=== PATIENT | male | born 2000 | race Caucasian/White ===

== ENCOUNTER → 2018-08-24 16:06 | Emergency (ER) | payer OTHER ==
[~2018-08-24 16:06] MED LIST: Ketorolac INJ* 30 MG/ML 1 ML VIAL IM ONE
--- NOTE | 2018-08-24 17:29 | RAD ---
HISTORY: chest pain COMPARISONS: None VIEWS: 4: Frontal dual-energy and lateral views of the chest. FINDINGS: CARDIOMEDIASTINAL SILHOUETTE: The cardiomediastinal silhouette is normal. LEFTY: The lefty are normal. PLEURA: The costophrenic angles are sharp. No pleural abnormalities are noted. LUNG PARENCHYMA: The lungs are clear. ABDOMEN: The upper abdomen is clear. There is no subphrenic gas. BONES AND SOFT TISSUES: No bone or soft tissue abnormalities are noted. OTHER: None. IMPRESSION: NO ACTIVE CARDIOPULMONARY DISEASE.
[2018-08-24 18:31] LABS: ABS Basophils 0 10^3/ul (0-0.2); ABS Eosinophils 0.1 10^3/ul (0-0.6); ABS Lymphocytes 1.5 10^3/ul (1.0-4.8); ABS Monocytes 0.6 10^3/ul (0-0.8); ABS Neutrophils 4.9 10^3/ul (1.5-7.7); ABS Nucleated RBC 0 10^3/ul; Eosinophil % 0.8 % (0-6); Hematocrit 42 % (42-52); Hemoglobin 14.2 g/dl (14.0-18.0); Lymphocyte % 21.4 % (25-47); Mean Corpuscular HGB Conc 34 g/dl (31-36); Mean Corpuscular Hemoglobin 30 pg (27-31); Mean Corpuscular Volume 88 fL (80-94); Mean Platelet Volume 7.6 um3 (7.4-10.4); Nucleated Red Blood Cells % 0; Platelet Count 270 10^3/ul (150-450); Red Blood Count 4.76 10^6/ul (4.00-5.40); Red Cell Distribution Width 13 % (10.5-15)
[2018-08-24 18:48] LABS: EGFR Non-African American 102.3 (>60)
--- NOTE | 2018-08-24 19:12 | ED ---
HPI Chest Pain - HPI Summary HPI Summary: 18 year old male presents with chest pain for the past 3 days. He states it is a dull ache. He admits occasional shortness breath with it. He states albuterol helps. He states that it mostly happens when he is sitting it seems to flares up. He states when he takes a deep breath it seems to help. He denies any cough. He was sick a week ago with a sore throat. No abdominal pain. No nausea and no vomiting. Has no other medical conditions beside asthma. Has no family cardiac history. No recent travel. Is not a smoker. Has no family history of blood clots. - History of Current Complaint Chief Complaint: EDChestWallPain Time Seen by Provider: 08/24/18 18:41 Pain Intensity: 6 - Allergy/Home Medications Allergies/Adverse Reactions: Allergies Allergy/AdvReac Type Severity Reaction Status Date / Time No Known Allergies Allergy Verified 08/24/18 16:11 PMH/Surg Hx/FS Hx/Imm Hx Endocrine/Hematology History: Denies: Hx Anticoagulant Therapy Respiratory History: Reports: Hx Asthma Infectious Disease History: No Infectious Disease History: Denies: Traveled Outside the [place] in Last 30 Days - Family History Known Family History: Negative: Cardiac Disease - Social History Alcohol Use: None Substance Use Type: Reports: None Smoking Status (MU): Unknown if Ever Smoked Review of Systems Negative: Fever Positive: Chest Pain Positive: Shortness Of Breath. Negative: Cough Negative: Abdominal Pain All Other Systems Reviewed And Are Negative: Yes Physical Exam Triage Information Reviewed: Yes Vital Signs On Initial Exam: Initial Vitals Temp Pulse Resp BP Pulse Ox 98.6 F 68 16 141/75 98 08/24/18 16:11 08/24/18 16:11 08/24/18 16:11 08/24/18 16:11 08/24/18 16:11 Vital Signs Reviewed: Yes Appearance: Positive: Well-Appearing Skin: Positive: Warm, Dry Head/Face: Positive: Normal Head/Face Inspection Eyes: Positive: Normal, EOMI, MAXIMO, Conjunctiva Clear ENT: Positive: Normal ENT inspection, Pharynx normal, TMs normal Respiratory/Lung Sounds: Positive: Clear to Auscultation, Breath Sounds Present Cardiovascular: Positive: Normal, RRR Abdomen Description: Positive: Nontender, Soft Bowel Sounds: Positive: Present Musculoskeletal: Positive: Normal Neurological: Positive: Normal Psychiatric: Positive: Normal Diagnostics - Vital Signs Vital Signs Temp Pulse Resp BP Pulse Ox 08/24/18 18:19 59 16 133/64 98 08/24/18 16:11 98.6 F 68 16 141/75 98 - Laboratory Lab Results: Lab Results 08/24/18 08/24/18 08/24/18 Range/Units 18:09 18:09 18:09 WBC 7.0 (3.5-10.8) 10^3/ul RBC 4.76 (4.00-5.40) 10^6/ul Hgb 14.2 (14.0-18.0) g/dl Hct 42 (42-52) % MCV 88 (80-94) fL MCH 30 (27-31) pg MCHC 34 (31-36) g/dl RDW 13 (10.5-15) % Plt Count 270 (150-450) 10^3/ul MPV 7.6 (7.4-10.4) um3 Neut % (Auto) 69.2 (38-83) % Lymph % (Auto) 21.4 L (25-47) % Sandoval % (Auto) 8.1 H (0-7) % Eos % (Auto) 0.8 (0-6) % Baso % (Auto) 0.5 (0-2) % Absolute Neuts (auto) 4.9 (1.5-7.7) 10^3/ul Absolute Lymphs (auto) 1.5 (1.0-4.8) 10^3/ul Absolute Monos (auto) 0.6 (0-0.8) 10^3/ul Absolute Eos (auto) 0.1 (0-0.6) 10^3/ul Absolute Basos (auto) 0 (0-0.2) 10^3/ul Absolute Nucleated RBC 0 10^3/ul Nucleated RBC % 0 ESR Pending Sodium 139 (135-145) mmol/L Potassium 3.7 (3.5-5.0) mmol/L Chloride 104 (101-111) mmol/L Carbon Dioxide 29 (22-32) mmol/L Anion Gap 6 (2-11) mmol/L BUN 12 (6-24) mg/dL Creatinine 0.94 (0.67-1.17) mg/dL Est GFR ( Amer) 123.8 (>60) Est GFR (Non-Af Amer) 102.3 (>60) BUN/Creatinine Ratio 12.8 (8-20) Glucose 101 H (70-100) mg/dL Lactic Acid 0.5 (0.5-2.0) mmol/L Calcium 9.5 (8.6-10.3) mg/dL Total Bilirubin 0.50 (0.2-1.0) mg/dL AST 21 (13-39) U/L ALT 21 (7-52) U/L Alkaline Phosphatase 93 (34-104) U/L Troponin I 0.00 (<0.04) ng/mL C-Reactive Protein 8.01 H (<8.01) mg/L Total Protein 7.4 (6.4-8.9) g/dL Albumin 4.6 (3.2-5.2) g/dL Globulin 2.8 (2-4) g/dL Albumin/Globulin Ratio 1.6 (1-3) Result Diagrams: 08/24/18 18:09 08/24/18 18:09 Lab Statement: Any lab studies that have been ordered have been reviewed, and results considered in the medical decision making process. - Radiology chest Xray Interpretation: No Acute Changes Radiology Interpretation Completed By: Radiologist - EKG No standard instances Cardiac Rate: NL EKG Rhythm: Sinus Rhythm EKG Interpretation: sinus rhythmn, early repolization Chest Pain Course/Dx - Course Course Of Treatment: 18 year old male presents with chest pain for the past 3 days. He states it is a dull ache. He admits occasional shortness breath with it. He states albuterol helps. He states that it mostly happens when he is sitting it seems to flares up. He states when he takes a deep breath it seems to help. He denies any cough. He was sick a week ago with a sore throat. No abdominal pain. No nausea and no vomiting. Has no other medical conditions beside asthma. Has no family cardiac history. No recent travel. Is not a smoker. Has no family history of blood clots. on exam lungs CTA. heart RRR. ekg sinus rythmn. no diffuse ST changes. non reproducible chest pain. chest xray normal. no friction rub heard on exam. labs normal. crp elevated. diff dx asthma vs pericarditis vs anxiety. troponin neg. no risk factors for PE. discussed that will try short course of ibuprofen for the pain. patient understand and agrees with plan. - Chest Pain Differential Diagnosis/HQI/PQRI: Acute MT, Chest Wall, Lower Respiratory Infection, Pulmonary Embolism, Other: - percarditis - Diagnoses Provider Diagnoses: Chest pain Discharge - Sign-Out/Discharge Documenting (check all that apply): Patient Departure - Discharge Plan Condition: Good Disposition: HOME Patient Education Materials: Noncardiac Chest Pain (ED) Referrals: No Primary Care Phys,NOPCP [Primary Care Provider] - Additional Instructions: take ibuprofen every 6 hours for the next couple days follow up with [facility] in 5 days Return to ED if develop any new or worsening symptoms - Billing Disposition and Condition Condition: GOOD Disposition: Home
[2018-08-24 19:33] VITALS: BP 117/63
== END | disposition home or self-care (01) ==
LOC: ED 16:06
DX: R07.9 Chest pain, unspecified (principal)
CPT/HCPCS: 36415; 71046; 80053; 83605; 84484; 85025; 85652; 86140; 93005; 96372; 99282; J1885

== ENCOUNTER → 2019-03-05 00:32 | Emergency (ER) | payer OTHER ==
[~2019-03-05 00:32] MED LIST changes: +Al Hydrox/Mg Hydrox/Simet LIQ* 30 ML UDC PO ONE; +Famotidine TAB* 20 MG PO ONE; -Ketorolac INJ* 30 MG/ML 1 ML VIAL IM ONE; +Sucralfate TAB* 1 GM PO ONE
--- NOTE | 2019-03-05 01:32 | ED ---
HPI Chest Pain - HPI Summary HPI Summary: This patient is a 18 year old M presenting to [facility] with a chief complaint of chest pain since 02/28/19, worsening 03/01/18. He has described the CP as burning, stinging, and tightness that extends to his entire chest. Symptoms aggravated by lying down but not affected by eating. Patient reports difficulty sleeping secondary to CP, nausea starting 03/02/19, and palpitations. Patient last drank EtOH 02/26/19. He has not been on steroids recently. PMHx of asthma but denies heartburn or reflux. Pt does not smoke and denies FHx of early cardiac disease. - History of Current Complaint Chief Complaint: EDChestWallPain Time Seen by Provider: 03/05/19 01:22 Hx Obtained From: Patient Onset/Duration: Started Days Ago, Still Present Timing: Constant, Lasting Days Initial Severity: Mild Current Severity: Moderate Pain Intensity: 6 Pain Scale Used: 0-10 Numeric Chest Pain Location: Mid Sternal Chest Pain Radiates: No Character: Burning, Tightness, Other: - Stinging Aggravating Factor(s): Position - Lying down, Other: - Unaffected by eating Associated Signs and Symptoms: Positive: Chest Pain, Nausea - Starting 03/02/19 , Other: - difficulty sleeping secondary to CP and palpitations - Allergy/Home Medications Allergies/Adverse Reactions: Allergies Allergy/AdvReac Type Severity Reaction Status Date / Time No Known Allergies Allergy Verified 08/24/18 16:11 PMH/Surg Hx/FS Hx/Imm Hx Endocrine/Hematology History: Denies: Hx Anticoagulant Therapy Respiratory History: Reports: Hx Asthma Infectious Disease History: No Infectious Disease History: Denies: Traveled Outside the [place] in Last 30 Days - Family History Known Family History: Negative: Cardiac Disease - Social History Alcohol Use: None Substance Use Type: Reports: None Smoking Status (MU): Unknown if Ever Smoked Review of Systems Positive: Other - difficulty sleeping secondary to CP Positive: Palpitations, Chest Pain Positive: Nausea - starting 03/02/19 All Other Systems Reviewed And Are Negative: Yes Physical Exam - Summary Physical Exam Summary: Appearance: well appearing, no pain distress Skin: Eczema on his right neck Head/face: normal Eyes: EOMI, MAXIMO ENT: mucous membranes moist Neck: supple, non-tender Respiratory: CTA, breath sounds present Cardiovascular: Regular rhythm, bradycardia, pulses symmetrical, No rub on the heart sounds Abdomen: Mild epigastric discomfort Bowel Sounds: present Musculoskeletal: normal, strength/ROM intact Neuro: normal, sensory motor intact, A&Ox3 Triage Information Reviewed: Yes Vital Signs On Initial Exam: Initial Vitals Temp Pulse Resp BP Pulse Ox 98.5 F 65 16 146/87 99 03/05/19 00:40 03/05/19 00:40 03/05/19 00:40 03/05/19 00:40 03/05/19 00:40 Vital Signs Reviewed: Yes Procedures - Ultrasound No standard instances Ultrasound: normal - 01:34. US of heart performed at bedside by ED physician. Normal. Diagnostics - Vital Signs Vital Signs Temp Pulse Resp BP Pulse Ox 03/05/19 00:40 98.5 F 65 16 146/87 99 - Laboratory Lab Statement: Any lab studies that have been ordered have been reviewed, and results considered in the medical decision making process. - Radiology Chest X-Ray Radiology Interpretation Completed By: ED Physician Summary of Radiographic Findings: 01:24. No acute findings. Pending official report. - EKG 00:43 Cardiac Rate: Bradycardia - 56 bpm EKG Rhythm: Sinus Rhythm ST Segment: Normal Summary of EKG Findings: Normal axis, normal interval. Chest Pain Course/Dx - Course Course Of Treatment: 18-year-old otherwise healthy male with subxiphoid chest discomfort. Bedside echocardiogram shows no pleural effusion and no mitral valve prolapse. His pain was totally relieved with GI treatments. EKG and chest x-ray normal. - Chest Pain Differential Diagnosis/HQI/PQRI: ACS, Chest Wall, GI Disease, Lower Respiratory Infection, Other: - MVP, pericarditis - Diagnoses Provider Diagnoses: Atypical chest pain, GERD (gastroesophageal reflux disease) Discharge - Sign-Out/Discharge Documenting (check all that apply): Patient Departure - D/C home Patient Received Moderate/Deep Sedation with Procedure: No - Discharge Plan Condition: Improved Disposition: HOME Prescriptions: Famotidine TAB* [Pepcid 20 MG TAB*] 20 mg PO BID #20 tab Sucralfate TAB* [Carafate*] 1 gm PO QID #30 tab Patient Education Materials: Gastroesophageal Reflux Disease (ED) Referrals: [facility] [Provider Group] Additional Instructions: Avoid alcohol, caffeine, hot or spicy foods, fluids with a lot of acid and any anti-inflammatory medication such as Aleve, ibuprofen or aspirin. Ashley diet. Return if worse, new symptoms or other concerns. Follow-up with [facility]. - Billing Disposition and Condition Condition: IMPROVED Disposition: Home - Attestation Statements Document Initiated by Venkata: Yes Documenting Scribe: Gil Mendoza Provider For Whom Venkata is Documenting (Include Credential): Enrique Crowe MD Scribe Attestation: Gil Almazan, scribed for Enrique Crowe MD on 03/05/19 at 0439. Scribe Documentation Reviewed: Yes Provider Attestation: The documentation as recorded by the Gil lambert accurately reflects the service I personally performed and the decisions made by , Enrique Crowe MD Status of Scribe Document: Viewed
[2019-03-05 03:11] VITALS: BP 119/69
== END | disposition home or self-care (01) ==
LOC: ED 00:32
DX: R07.89 Other chest pain (principal); K21.9 Gastro-esophageal reflux disease without esophagitis; R00.1 Bradycardia, unspecified; R00.2 Palpitations
CPT/HCPCS: 71046; 93005; 99282; A9270-GY